=== PATIENT | male | born 1985 | race African-American/Black ===

== ENCOUNTER 2017-11-15 17:35 | Emergency (ER) | payer BC ==
--- NOTE | 2017-11-15 18:10 | ER ---
Nurse's Notes [facility] Name: Tahir Askew Age: 32 yrs Sex: Male : 1985 Arrival Date: 11/15/2017 Time: 17:40 Bed 20 Private MD: Diagnosis: Hordeolum (externum) (internum) of eyelid Presentation: 11/15 17:56 Presenting complaint: Patient states: has had pain in left eye since , mild iw selling since Thursday, feels something in eyelid. Transition of care: patient was not received from another setting of care. Onset of symptoms was November 13, 2017. Risk Assessment: Do you want to hurt yourself or someone else? Patient reports no desire to harm self or others. Initial Sepsis Screen: Does the patient meet any 2 criteria? No. Patient's initial sepsis screen is negative. Does the patient have a suspected source of infection? No. Patient's initial sepsis screen is negative. Care prior to arrival: None. 17:56 Method Of Arrival: Ambulatory iw 17:56 Acuity: JOEY 4 iw Historical: - Allergies: 17:59 NKA; iw - Home Meds: 17:59 None [Active]; iw - PMHx: 17:59 None; iw - PSHx: 17:59 None; iw - Immunization history:: Adult Immunizations not up to date. - Social history:: Smoking status: Patient/guardian denies using tobacco. - Ebola Screening: : Patient negative for fever greater than or equal to 101.5 degrees Fahrenheit, and additional compatible Ebola Virus Disease symptoms Patient denies exposure to infectious person Patient denies travel to an Ebola-affected area in the 21 days before illness onset No symptoms or risks identified at this time. - : The history from the nurse's notes was reviewed. Screenin:08 Abuse screen: Denies threats or abuse. Nutritional screening: No deficits noted. em Tuberculosis screening: No symptoms or risk factors identified. Fall Risk None identified. Assessment: 18:08 General: Appears in no apparent distress. comfortable, Behavior is calm, cooperative. em Pain: Complains of pain in medial canthus of left eye and left lower eyelid Pain currently is 4 out of 10 on a pain scale. Neuro: Level of Consciousness is awake, alert, Oriented to person, place, time, situation. Cardiovascular: Capillary refill < 3 seconds Patient's skin is warm and dry. Respiratory: Airway is patent Respiratory effort is even, unlabored, Respiratory pattern is regular, symmetrical. GI: Abdomen is flat. GI:. EENT: Lid(s) w/ stye noted left inner canthus Reports pain in medial canthus of left eye and left lower eyelid. Derm: Skin is intact, Skin is pink, warm \T\ dry. Musculoskeletal: Range of motion: intact in all extremities. 18:20 Reassessment: Patient appears in no apparent distress at this time. I agree with above iw assessment by Uriel Acosta LVN. Vital Signs: 17:58 BP 135 / 89; Pulse 59; Resp 18; Temp 98.2; Pulse Ox 100% on R/A; Weight 87.09 kg; iw Height 5 ft. 9 in. (175.26 cm); Pain 4/10; 17:58 Body Mass Index 28.35 (87.09 kg, 175.26 cm) iw ED Course: 17:40 Patient arrived in ED. mr 17:54 Miquel Roach PA is PHCP. [facility] 17:54 Twin Benítez MD is Attending Physician. [facility] 17:55 Uriel Acosta LVN is Primary Nurse. em 17:58 Triage completed. iw 17:58 Arm band placed on. iw 18:07 Patient has correct armband on for positive identification. Bed in low position. Call em light in reach. 18:07 No provider procedures requiring assistance completed. Patient did not have IV access em during this emergency room visit. 18:09 Virginia Dwyer MD is Referral Physician. [facility] Administered Medications: No medications were administered Outcome: 18:09 Discharge ordered by . [facility] 18:21 Discharged to home ambulatory. mg2 18:21 Condition: stable 18:21 Discharge instructions given to patient, Instructed on discharge instructions, follow up and referral plans. medication usage, Demonstrated understanding of instructions, follow-up care, medications, Prescriptions given X 2. 18:23 Patient left the ED. mg2 Signatures: Miquel Roach PA PA jmm Rivera, Maria mr Uriel Acosta LVN LVN em Zoe Marmolejo RN RN Akbar Whitmore RN RN mg2 Corrections: (The following items were deleted from the chart) 19:00 18:59 The history from the nurse's notes was reviewed. isi snowden
--- NOTE | 2017-11-15 18:10 | EDPHYS ---
Physician Documentation [facility] Name: Tahir Askew Age: 32 yrs Sex: Male : 1985 Arrival Date: 11/15/2017 Time: 17:40 Bed 20 Private MD: ED Physician Twin Benítez HPI: 11/15 18:14 This 32 yrs old Black Male presents to ER via Ambulatory with complaints of Eye jmm Swelling. 18:14 The patient is experiencing swelling. Onset: The symptoms/episode began/occurred jmm gradually, 2 day(s) ago. Duration: the symptoms are continuous. Associated signs and symptoms: Pertinent negatives: fever. This is a 32 year old male with no chronic medical conditions that presents to the ED with left eye swelling beginning approx 2 days ago. Patient states he rubbed his eye and developed increased swelling. Patient denies changes in his vision. . Historical: - Allergies: 17:59 NKA; iw - Home Meds: 17:59 None [Active]; iw - PMHx: 17:59 None; iw - PSHx: 17:59 None; iw - Immunization history:: Adult Immunizations not up to date. - Social history:: Smoking status: Patient/guardian denies using tobacco. - Ebola Screening: : Patient negative for fever greater than or equal to 101.5 degrees Fahrenheit, and additional compatible Ebola Virus Disease symptoms Patient denies exposure to infectious person Patient denies travel to an Ebola-affected area in the 21 days before illness onset No symptoms or risks identified at this time. - : The history from the nurse's notes was reviewed. ROS: 18:14 Constitutional: Negative for fever, chills, and weight loss. jmm 18:14 ENT: Negative for injury, pain, and discharge, Cardiovascular: Negative for chest pain, palpitations, and edema, Respiratory: Negative for shortness of breath, cough, wheezing, and pleuritic chest pain. 18:14 Eyes: Positive for swelling, Negative for pain, vision loss. 18:14 Skin: Positive for swelling. 18:14 Neuro: Negative for weakness. 18:14 All other systems are negative. Exam: 18:14 Constitutional: This is a well developed, well nourished patient who is awake, alert, jmm and in no acute distress. Chest/axilla: Normal chest wall appearance and motion. Cardiovascular: Regular rate and rhythm. No edema appreciated Respiratory: Normal respirations, no respiratory distress appreciated 18:14 Back: Normal ROM MS/ Extremity: Moves all extremities, no obvious deformities appreciated, no edema noted to the lower extremities Neuro: Awake and alert, normal gait Psych: Behavior is normal, Mood is normal, Patient is cooperative and pleasant 18:14 Eyes: Extraocular movements: intact throughout, lower eyelid swelling appreciated, a pustule is noted on the inside of the lower lid, non tender to palpation. Vital Signs: 17:58 BP 135 / 89; Pulse 59; Resp 18; Temp 98.2; Pulse Ox 100% on R/A; Weight 87.09 kg; iw Height 5 ft. 9 in. (175.26 cm); Pain 4/10; 17:58 Body Mass Index 28.35 (87.09 kg, 175.26 cm) iw MDM: 18:07 Patient medically screened. [facility] 18:08 Data reviewed: vital signs, nurses notes. Counseling: I had a detailed discussion with [facility] the patient and/or guardian regarding: the historical points, exam findings, and any diagnostic results supporting the discharge/admit diagnosis, the need for outpatient follow up, to return to the emergency department if symptoms worsen or persist or if there are any questions or concerns that arise at home. 18:14 ED course: PE exam findings appear consistent with stye. Patient is encouraged to use [facility] warm wet compresses frequently. Patient is prescribed oral and topical antibiotics and given follow up with ophthalmology. Patient given return precautions. Patient understood and agrees with the plan of care. . Administered Medications: No medications were administered Disposition: 11/16 10:34 Co-signature as Attending Physician, Twin Benítez MD. Disposition: 18 18:09 Discharged to Home. Impression: Hordeolum (externum) (internum) of eyelid. - Condition is Stable. - Discharge Instructions: Stye. - Prescriptions for Augmentin 875- 125 mg Oral Tablet - take 1 tablet by ORAL route every 12 hours for 10 days; 20 tablet. Erythromycin 5 mg/gram (0.5 %) Ophthalmic Ointment - apply 1 centimeter by OPHTHALMIC route 2-3 times daily for 7 days; 1 tube. - Medication Reconciliation Form, Thank You Letter, Antibiotic Education, Prescription Opioid Use, Work release form form. - Follow up: Virginia Dwyer MD; When: 1 - 2 days; Reason: Continuance of care. Signatures: Miquel Roach PA PA [facility] Zoe Marmolejo RN RN iw Twin Benítez MD MD gs Gardose, Michele, RN RN mg2 Corrections: (The following items were deleted from the chart) 11/15 18:23 18:09 11/15/2017 18:09 Discharged to Home. Impression: Hordeolum (externum) (internum) mg2 of eyelid. Condition is Stable. Forms are Medication Reconciliation Form, Thank You Letter, Antibiotic Education, Prescription Opioid Use. Follow up: Virginia Dwyer; When: 1 - 2 days; Reason: Continuance of care. [facility] 19:00 18:59 The history from the nurse's notes was reviewed. [facility] 19:00 18:14 This is a 32 year old male with no chronic medical conditions that presents to [facility] the ED with left eye swelling beginning approx 2 days ago. Patient states r. [facility]
== END 2017-11-15 18:23 | disposition home or self-care (01) ==
LOC: ER 17:35
DX: H00.029 Hordeolum internum unspecified eye, unspecified eyelid (principal)
CPT/HCPCS: 99282